=== PATIENT | male | born 1965 | race Caucasian/White ===

== ENCOUNTER 2020-01-26 15:54 | Outpatient (RCR) | payer OTHER, SELFPAY ==
--- NOTE | 2020-01-26 16:40 | PTOPEVAL ---
Thank you for referring TANIA ELLINGTON to [facility]. Please review, sign, date and return this plan of care ELIGIO. I agree with and certify that the following plan of care is medically necessary. Referring Physician Date Admitting Provider: Attending Provider: Bull Villela, MD Referring Provider: *PT Outpatient Evaluation Start: 01/26/20 16:03 Freq: Status: Active Protocol: Document 01/26/20 16:05 JTF (Rec: 01/26/20 16:38 [facility] [id number]) Therapy Assessment Status Assessment Status Assessment Status Evaluation Evaluation Information Problem Diagnosis L shoulder impingement Onset 01/06/20 Additional Evaluation Detail quick dash = 38% Subjective Information patient reports he has been Query Text:As Reported By Patient/ having pain in the L shoulder Family for years. he reports he has a torn rotator cuff in his bilateral shoudlers. 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 he reports he has increased pain in the L shoulder with driving, sleeping/laying on the L shoulder, and lifting objects. he reports no plans for surgery at this time. he reports the shoulder has been operated on 1 time for a SAD and RTC repair. he reports he just had an injection to the L shoulder which has helped to dull his pain more. 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 he reports he has to drive and go to many construction sites daily. he reports he is especially affected by pain in the L shoulder with driving and working on activities at home. Pain Assessment Timing of Pain Assessment Timing of Pain Assessment Assessment Pain Scale Pain Scale Used Numeric (1 - 10) Self Report Pain Assessment Left Shoulder(s) Reported Pain Level 3 Pain Description Sharp,Stabbing Lowest Pain Intensity 3 Greatest Pain Intensity 8 Pain Score Pain Score 3: Self Report Upper Extremity Range o
--- NOTE | 2020-02-10 17:21 | PCPTNOTE ---
02/10/20-pt cancelled today's appointment because he is stuck in [place] for work.-
== END 2020-02-08 17:00 | disposition home or self-care (01) ==
LOC: CHSPT 15:54
PROVIDERS: Visit Provider Orthopaedic Surgery
DX: M75.42 Impingement syndrome of left shoulder (principal)
CPT/HCPCS: 97014; 97110; 97161; G0283

== ENCOUNTER 2020-09-19 07:40 | Outpatient (RCR) | payer OTHER, SELFPAY ==
--- NOTE | 2020-09-19 08:06 | PTOPEVAL ---
Thank you for referring TANIA ELLINGTON to [facility] [place].? The patient is scheduled to be seen for therapy? _3___x/week for 12 visits. Please review, sign, date and return this plan of care ELIGIO. I agree with and certify that the following plan of care is medically necessary. Referring Physician Date Admitting Provider: Attending Provider: Bull Villela, MD Referring Provider: *PT Outpatient Evaluation Start: 09/19/20 07:08 Freq: Status: Active Protocol: Document 09/19/20 07:08 ACR (Rec: 09/19/20 08:05 ACR [id number]) Therapy Assessment Status Assessment Status Assessment Status Evaluation Evaluation Information Problem Diagnosis R rotator cuff repair Onset 08/04/20 Subjective Information Patient states this is the 2nd Query Text:As Reported By Patient/ surgery on the L shoulder and Family it was a chronic injury. Patient states that he has difficulty reaching behind the back, washing his hair, and reaching above his head. He states that his R shoulder also has a tear in it, but he is not getting that one done until next winter. Patient states the pain can wake him up if he rolls onto the L side . Prior Level of Function Activity Level (Last 3 Months) Occupation construction/computer work Hand Dominance Right Activity of Daily Living Ability Independent Indoor/Home Mobility Independent Community Mobility Independent Stairs Ability Independent Functional Cognition (Planning, Shopping Independent , Taking Medications) Cooking Yes Cleaning Yes Laundry Yes Shopping Yes Driving Yes Pain Assessment Timing of Pain Assessment Timing of Pain Assessment Pre-Treatment Pain Scale Pain Scale Used Numeric (1 - 10) Self Report Pain Assessment Left Shoulder(s) Reported Pain Level 1 Lowest Pain Intensity 0 Greatest Pain Intensity 8 Additional Pain Comments Patient states that the worst pain is when he is reaching over his head Pain Score Pain Score 1: Self Report Interventions Used Interventions Used By Clinicians Activity or ADL's,Electrical Stimulation,Exercise,Heat Upper Extremity Range of Motion
--- NOTE | 2020-10-21 08:03 | PTOPEVAL ---
Thank you for referring Lemuel Carrera to [facility].? The patient is scheduled to be seen for therapy? ____x/week for ___ weeks. Please review, sign, date and return this plan of care ELIGIO. I agree with and certify that the following plan of care is medically necessary. Referring Physician Date Admitting Provider: Attending Provider: Bull Villela, Referring Provider: *PT Outpatient Evaluation Start: 09/19/20 07:08 Freq: Status: Active Protocol: Document 10/17/20 07:00 ACR (Rec: 10/17/20 08:05 ACR [email or web address]) Therapy Assessment Status Assessment Status Assessment Status Progress Evaluation Information Problem Diagnosis L rotator cuff repair Onset 08/04/20 Subjective Information Patient states he feels he is Query Text:As Reported By Patient/ doing better since he started Family therapy. He is able to do almost everything he needs to do, but it takes longer than usual because he has no strength in either of his shoulders, especially the L. Pain Assessment Timing of Pain Assessment Timing of Pain Assessment Assessment Pain Scale Pain Scale Used Numeric (1 - 10) Self Report Pain Assessment Left Shoulder(s) Reported Pain Level 2 Greatest Pain Intensity 4 Pain Score Pain Score 2: Self Report Interventions Used Interventions Used By Clinicians Activity or ADL's,Education, Exercise Upper Extremity Range of Motion Scapular/ Shoulder Range of Motion Left Shoulder Flexion - Active 167 Shoulder Abduction - Active 170 Shoulder Medial Rotation - Active 52 Shoulder Lateral Rotation - Active 73 Upper Extremity Muscle Strength Testing Scapular/Shoulder Right Shoulder Flexion Strength 3+ Fair + Shoulder Abduction Strength 3+ Fair + Shoulder Medial Rotation Strength 4 Good Shoulder Lateral Rotation Strength 3 Fair Left Shoulder Flexion Strength 3 Fair Shoulder Abduction Strength 3+ Fair + Shoulder Medial Rotation Strength 4 Good Shoulder Lateral Rotation Strength 3 Fair General Exercise General Exercises Exercise Description - re evaluation x 5 minutes Query Text:Record Sets, Reps, -PROM to the left shoulder Resistance, and Position into flexion, ER and IR x 10 minutes -supine shoulder flexion x 20 reps -seated shoulder flexion x 15 reps -standing shoulder flexion 1# x 15
== END 2020-11-07 14:25 | disposition home or self-care (01) ==
LOC: CHSPT 07:40
PROVIDERS: Visit Provider Orthopaedic Surgery
DX: M75.102 Unspecified rotator cuff tear or rupture of left shoulder, not specified as traumatic (principal)
CPT/HCPCS: 97014; 97110; 97161; G0283

== ENCOUNTER 2020-10-21 08:06 | Outpatient (RCR) | payer OTHER, SELFPAY ==
--- NOTE | 2020-10-21 09:13 | PTOPEVAL ---
Thank you for referring Lemuel Carrera to [facility].? The patient is scheduled to be seen for therapy? ____x/week for ___ weeks. Please review, sign, date and return this plan of care ELIGIO. I agree with and certify that the following plan of care is medically necessary. Referring Physician Date Admitting Provider: Attending Provider: ELSA MEAD Referring Provider: JELLY Outpatient Evaluation Start: 10/21/20 08:13 Freq: Status: Active Protocol: Document 10/21/20 08:13 ACR (Rec: 10/21/20 09:00 ACR [email or web address]) Therapy Assessment Status Assessment Status Assessment Status Evaluation Evaluation Information Problem Diagnosis L achilles tendonitis Onset 10/11/20 Subjective Information Patient states that he has a Query Text:As Reported By Patient/ bone spur in the achilles Family tendon and does not want to get surgery on it. He states it has been there for awhile. He has difficulty with walking long distances or walking barefoot. He states it is worse in the morning and in the evening. He has difficulty with walking on the uneven terrain. Prior Level of Function Activity Level (Last 3 Months) Occupation construction Hand Dominance Right Activity of Daily Living Ability Independent Indoor/Home Mobility Independent Community Mobility Independent Stairs Ability Independent Functional Cognition (Planning, Shopping Independent , Taking Medications) Cooking Yes Cleaning Yes Laundry Yes Shopping Yes Driving Yes Pain Assessment Timing of Pain Assessment Timing of Pain Assessment Pre-Treatment Pain Scale Pain Scale Used Numeric (1 - 10) Self Report Pain Assessment Left Ankle(s) Reported Pain Level 5 Greatest Pain Intensity 8 Pain Score Pain Score 5: Self Report Interventions Used Interventions Used By Clinicians Activity or ADL's,Education, Exercise Lower Extremity Range of Motion Ankle/Foot Range of Motion Left Ankle Dorsiflexion With Knee Extension 8 Range of Motion - Active Ankle Plantarflexion Range of Motion - 50 Active Query Text: Ankle Eversion Range of Motion - Active 15 Ankle Inversion Range of Motion - Active 25 Lower Extremity Muscle Strength Testing Ankle Strength
--- NOTE | 2020-12-22 08:18 | PCPTNOTE ---
Patient is a 55 year old male that participated in 4 visits for L achilles tendonitis. The patient called and stated that he is unable to continue with therapy due to work and home life being too busy. Please refer to recent treatment note for discharge status. Thank you, AL FraserT
== END 2020-11-09 17:54 | disposition home or self-care (01) ==
LOC: CHSPT 08:06
DX: M76.62 Achilles tendinitis, left leg (principal)
CPT/HCPCS: 97110; 97140; 97161

== ENCOUNTER 2024-08-19 08:42 | Outpatient (RCR) | payer BC, SELFPAY ==
[2024-08-19 07:11] VITALS: BP_SYST 83
--- NOTE | 2024-08-19 08:08 | OPREHPOC ---
Outpatient Therapy Plan of Care This is a Multidisciplinary Plan of Care that may contain components documented by all disciplines (PT, OT, and ST.) PT Problem 1 PT Problem #1 Knowledge Deficit PT Goal 1 Goal / Goal Update 1. independent and compliant with HEP Target Visit 6 PT Problem 2 PT Problem #2 Pain PT Goal 1 Goal / Goal Update 1. patient to report no pain in the R shoulder in the last week Target Visit 12 PT Problem 3 PT Problem #3 Impaired Range of Motion PT Goal 1 Goal / Goal Update 1. 140 degrees active R shoulder flexion 2. 120 degrees active R shoulder abduction 3. 60 degrees active R shoulder ER Target Visit 12 PT Problem 4 PT Problem #4 Impaired Strength PT Goal 1 Goal / Goal Update 1. 4/5 or better strength of the R shoulder overall Target Visit 12 PT Problem 5 PT Problem #5 Impaired Functional Mobility PT Goal 1 Goal / Goal Update 1. quick dash to display 20% or less functional deficits 2. patient to reach behind head with the R hand to the occiput/upper neck 3. patient to reach behind back with the R hand to the lumbar spine/sacrum 4. patient to lift 10lbs with R hand to overhead shelf 5. patient to lift 30lbs with both hands to overhead shelf Target Visit 12
--- NOTE | 2024-08-19 08:10 | PTOPEVAL1 ---
Assessment and note entered by JT File, PT Evaluation Information Assessment Status Evaluation Diagnosis s/p R reverse total shoulder replacement ICD-10 Condition Codes (PT) Pain in right shoulder M25.511,Aftercare following joint replacement surgery Z47.1 Onset 08/03/24 Subjective Information patient reports he underwent a reverse total shoulder replacement on 08/03/24. he reports prior to the replacement, he was missing a lot of function. he reports he was unable to get to the 2nd and 3rd shelf to reach objects in the kitchen. 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 he reports he travels 1-2 times a month, and reports he has been having a lot of trouble to get his luggage into the overhead. Reported Pain Level Pain Score 3: Self Report Assessment PT Clinical Summary mr. marrero is a 59 yo man who presents to skilled PT services for evaluation and treatment of reverse R shoulder replacement. he presents with decreased active and passive rom, decreased strength, pain, and decreased functional use of the R arm. he would benefit from continued skilled PT to address his objective/functional deficits and return to his prior level functional activity performance/quality of life. Plan of Care Interventions Electrical Stimulation,Hot Pack/Cold Pack,Manual Therapy,Neuro Re-education,Patient/Caregiver Education,Therapeutic Activities,Therapeutic Exercise PT Services Indicated Yes Treatment Frequency and 2x weekly for 12 visits Duration These treatments will address the objective and functional deficits as defined above. The patient will be advanced safely and appropriately in order for the patient to progress towards his/her prior level of function. Additional exercises will be introduced and as well as a comprehensive home exercise program upon discharge, if needed, ?to ensure carryover of functional gains achieved in the clinic. This treatment plan has been reviewed and agreement upon by the patient.
== END 2024-09-03 20:00 | disposition home or self-care (01) ==
LOC: CHSPT 08:42
DX: M12.811 Other specific arthropathies, not elsewhere classified, right shoulder (principal); Z96.611 Presence of right artificial shoulder joint
CPT/HCPCS: 97014; 97110; 97161; G0283